=== PATIENT | female | born 1940 | race Caucasian/White ===

== ENCOUNTER 2017-07-18 13:12 | Day surgery (SDC) | payer OTHER ==
[2017-07-17 14:34] VITALS: BMI 36.5
[2017-07-18 13:34] VITALS: TEMP 98.5
[2017-07-18] MEDS ORDERED: PROPOFOL 20 ML ONE ×3 (14:18)
[2017-07-18 14:59] VITALS: PULSE 72
[2017-07-18 15:04] VITALS: BP 138/70
--- NOTE | 2017-07-21 11:37 | PATH ---
Surgical Pathology Report Patient Name: KRUPA MCPHERSON [facility]. Rec. #: [id number] /Age/Gender: 1940 (Age: 76) / F Account: [id number] Location: U-ENDOSCOPY Taken: 07/18/2017 Received: 07/18/2017 Reported: 07/21/2017 Physicians: Misael Strickland M.D. Specimen(s) Received A: BX GE JUNCTION B: BX ESOPHAGUS Clinical History Preoperative diagnosis: Dysphagia Postoperative diagnosis: Hiatal hernia, distal esophageal spasm Final Diagnosis A. GASTROESOPHAGEAL (GE) JUNCTION, BIOPSY: SQUAMOUS MUCOSA WITHOUT SIGNIFICANT PATHOLOGIC FINDINGS. NO COLUMNAR COMPONENT, INTESTINAL METAPLASIA OR DYSPLASIA IDENTIFIED. B. MID ESOPHAGUS, BIOPSY: SQUAMOUS MUCOSA WITHOUT SIGNIFICANT PATHOLOGIC FINDINGS. Electronically Signed Rola Rai M.D. Gross Description A. Received in formalin, labeled "biopsy GE junction" are 3 earl, irregular portions of soft tissue ranging from 0.1-0.2 cm. in greatest dimension. The specimens are submitted in toto in one cassette. B. Received in formalin, labeled "biopsy mid esophagus" are 2 earl, irregular portions of soft tissue measuring 0.3 and 0.4 cm. in greatest dimension. The specimens are submitted in toto in one cassette. 07/18/201707/18/2017
== END 2017-07-18 15:22 | disposition home or self-care (01) ==
LOC: JASU-ENDO 13:12
PROVIDERS: ATTEND Internal Medicine Gastroenterology
PROC: 0DB48ZX Excision of Esophagogastric Junction, Via Natural or Artificial Opening Endoscopic, Diagnostic (ICD-10-PCS; 2017-07-18)
PROC: 0DB28ZX Excision of Middle Esophagus, Via Natural or Artificial Opening Endoscopic, Diagnostic (ICD-10-PCS; 2017-07-18)
PROC: 0DB38ZX Excision of Lower Esophagus, Via Natural or Artificial Opening Endoscopic, Diagnostic (ICD-10-PCS; 2017-07-18)
PROC: 0D738ZZ Dilation of Lower Esophagus, Via Natural or Artificial Opening Endoscopic (ICD-10-PCS; principal; 2017-07-18 14:00)
DX: K22.4 Dyskinesia of esophagus (principal); K44.9 Diaphragmatic hernia without obstruction or gangrene
CPT/HCPCS: 88305-TC